=== PATIENT | male | born 1995 | race African-American/Black ===

== ENCOUNTER 2018-04-30 16:33 | Emergency (ER) | payer MEDICAID ==
[~2018-04-30] VITALS: Ht 177.8 cm; Wt 113.4 kg
[2018-04-30 16:38] VITALS: BP 129/68
[2018-04-30] MEDS ORDERED: NKM (16:42)
--- NOTE | 2018-04-30 18:00 | NUR ---
ED Nurse Note: PT. AAOX4. AMBULATORY. CAME IN DUE TO NOSE PAIN AND TENDERNESS AFTER GETTING HIT IN THE FACE WHILE PLAYING BASKETBALL X YESTERDAY. PT STATES HE HAD NOSEBLEEDS BUT BLEEDING HAS SUBSIDED.
[2018-04-30] MEDS ORDERED: Tylenol #3 tab (300mg/30mg) ORAL ONE (19:00)
[2018-04-30 19:15] VITALS: BP 129/68
--- NOTE | 2018-04-30 19:15 | NUR ---
ER DISCHARGE NOTE: Patient is cleared to be discharged per ERMD, pt is aox4, on room air, with stable vital signs. pt was given dc and prescription instructions, pt left without signing dc paper work, pt id band removed. pt is able to ambulate with steady gait. pt took all belongings.
--- NOTE | 2018-04-30 19:23 | Emergency Room Report ---
History of Present Illness General Chief Complaint: Pain Source: Patient Present Illness HPI Pt. presents to the ED c/o 8 out of 10 in severity pain and tenderness to the nose times one day status post struck in the face by basketball denies loss of consciousness denies falling to the ground hitting his head or having midline neck or back pain. reports nose bleed which resolved. denies taking blood thinning medications, denies PACKER. Allergies: Coded Allergies: CAT DANDER (Verified Allergy, Unknown, 04/30/18) DOG DANDER (Verified Allergy, Unknown, 04/30/18) GRASS POLLEN (Verified Allergy, Unknown, 04/30/18) Patient History Past Medical History: see triage record Past Surgical History: none Pertinent Family History: none Reviewed Nursing Documentation: PMH: Agreed; PSxH: Agreed Nursing Documentation-PMH Past Medical History: No Stated History Review of Systems All Other Systems: negative except mentioned in HPI Physical Exam Vital Signs Date Time Temp Pulse Resp B/P (MAP) Pulse Ox O2 Delivery O2 Flow Rate FiO2 04/30/18 16:38 98.2 73 16 129/68 97 Room Air Sp02 EP Interpretation: reviewed, normal General Appearance: no apparent distress, alert, GCS 15, non-toxic Head: normocephalic, other - swelling ttp to nasal bridge, no septal hematoma, no epistaxis Eyes: bilateral eye normal inspection, bilateral eye PERRL ENT: hearing grossly normal, normal voice Neck: full range of motion, no bony tend Respiratory: lungs clear, normal breath sounds, speaking full sentences Cardiovascular #1: regular rate, rhythm, no edema Musculoskeletal: back normal, gait/station normal, normal range of motion, non- tender Neurologic: alert, oriented x3, responsive, motor strength/tone normal, sensory intact, speech normal, grossly normal Psychiatric: judgement/insight normal Skin: normal color, no rash, warm/dry, well hydrated Lymphatic: no adenopathy Medical Decision Making PA Attestation Dr. Kevin is my supervising Physician whom patient management has been discussed with. Diagnostic Impression: Primary Impression: Nasal bone fractures Qualified Codes: S02.2XXA - Fracture of nasal bones, initial encounter for closed fracture ER Course Pt. presents to the ED c/o 8 out of 10 in severity pain and tenderness to the nose times one day status post struck in the face by basketball denies loss of consciousness denies falling to the ground hitting his head or having midline neck or back pain. reports nose bleed which resolved. denies taking blood thinning medications, denies PACKER. Ddx considered but are not limited to Fracture, dislocation, contusion, Sprain/ Strain/Spasm Vital signs: are WNL, pt. is afebrile H&PE are most consistent with musculoskeletal injury will perform imaging to r/ o fractures/dislocations. ORDERS: - CT facial bones no contrast: bilateral nondisplaced fx. --nasal bones ED INTERVENTIONS:-- - Tylenol #3 PO DISCHARGE: At this time pt. is stable for d/c to home. Will provide printed patient care instructions, and any necessary prescriptions. Care plan and follow up instructions have been discussed with the patient prior to discharge. CT/MRI/US Diagnostic Results CT/MRI/US Diagnostic Results : Imaging Test Ordered: CT facial bones no contrast Impression Nondisplaced bilateral nasal bone fractures age indeterminate questionable fracture of the bony nasal septum Per official radiology report- Please see report for specific details. Last Vital Signs Date Time Temp Pulse Resp B/P (MAP) Pulse Ox O2 Delivery O2 Flow Rate FiO2 04/30/18 16:38 98.2 73 16 129/68 97 Room Air Disposition: HOME, SELF-CARE Condition: Stable Scripts Ibuprofen* (MOTRIN*) 600 Mg Tablet 600 MG ORAL THREE TIMES A DAY, #20 TAB 0 Refills Prov: Meryl Rivera 04/30/18 Acetaminophen With Codeine (T#3) (TYLENOL #3 TAB*) Y Tab 1 TAB ORAL Q6HR PRN for For Pain, #9 TAB Prov: Meryl Rivera 04/30/18 Patient Instructions: Nasal Fracture, [id number] Additional Instructions: Take medications as directed. Follow up with a Primary Care Provider in 3-5 days, even if your symptoms have resolved. ENT Specialist EVAL for follow up --Please review list of primary care clinics, if you do not already have a primary care provider Return sooner to ED if new symptoms occur, or current symptoms become worse. Do not drink alcohol, drive, or operate heavy machinery while taking Tylenol # 3 w. Codeine as this may cause drowsiness. - Please note that this Emergency Department Report was dictated using [employer] director technology software, occasionally this can lead to erroneous entry secondary to interpretation by the dictation equipment. Meryl Rivera Apr 30, 2018 19:23
[2018-04-30] MEDS ORDERED: ACETAMINOPHEN-1 EAC1 ORAL (19:24)
[2018-04-30] MEDS ORDERED: IBUPROFEN600 MG ORAL (19:24)
--- NOTE | 2018-05-01 08:47 | Diagnostic Imaging Report ---
Indications: Facial pain, status post injury, hit with in face with a basketball, nosebleeds, nose pain and tenderness Technique: Spiral images obtained through the facial bones. No IV contrast utilized. Multiplanar reconstructions were generated.Total dose length product 622.54 mGycm. CTDIvol(s) 28.19 mGy. Dose reduction achieved using automated exposure control Comparison: none Findings: There is a very slightly depressed fracture of the nasal bone on both sides. There is a fracture of the nasal septum, minimally displaced. No other acute fractures. There is minimal perinasal soft tissue swelling. The optic globes and retroseptal orbits are intact. There is considerable mucosal disease and opacification involving the left frontal, bilateral ethmoid, bilateral maxillary sinuses. No worrisome sinus air-fluid levels are demonstrated. There is hypertrophy of the adenoids. There is a small amount of left mastoid opacification. The visualized intracranial structures are unremarkable, Impression: Positive for slightly displaced nasal and nasal septal fractures Sinus disease as described Left mastoid effusion This agrees with the preliminary interpretation provided overnight by [facility]. The CT scanner at [facility] is accredited by the [employer] and the scans are performed using protocols designed to limit radiation exposure to as low as reasonably achievable to attain images of sufficient resolution adequate for diagnostic evaluation.
== END 2018-04-30 19:15 | disposition home or self-care (01) ==
LOC: EDBD 16:33 → EMR 17:30
DX: S02.2XXA Fracture of nasal bones, initial encounter for closed fracture (principal); W51.XXXA Accidental striking against or bumped into by another person, initial encounter; Y93.67 Activity, basketball; Y92.9 Unspecified place or not applicable; Z91.048 Other nonmedicinal substance allergy status
CPT/HCPCS: 70486; 99284